=== PATIENT | male | born 1940 | race Caucasian/White ===

== ENCOUNTER 2020-01-01 07:21 | Day surgery (SDC) | payer MEDICARE ==
[2019-12-30 16:05] VITALS: BP 140/69
[2019-12-30 16:06] LABS: BASOPHILS % (AUTO) 0.7 % (0.0-5.0); EOSINOPHILS % (AUTO) 8.6 % (0.0-8.0); LYMPHOCYTES % (AUTO) 22.5 % (21.0-51.0); MEAN CORPUSCULAR HEMOGLOBIN 33.7 pg (27.0-33.0); MEAN CORPUSCULAR HGB CONC 34.1 g/dL (32.0-36.0); MEAN CORPUSCULAR VOLUME 98.9 fL (79-99); MONOCYTES % (AUTO) 8.9 % (3.0-13.0); NEUTROPHILS % (AUTO) 59.2 % (40.0-77.0); PLATELET COUNT (AUTO) 204 K/uL (130-400); RED BLOOD CELL COUNT(AUTO) 3.74 MIL/uL (4.50-6.20); RED CELL DISTRIBUTION WIDTH 13.5 % (11.0-15.5); WHITE BLOOD COUNT (AUTO) 7.1 K/uL (4.8-10.8)
[2019-12-30 16:21] LABS: INR 0.98 (0.85-1.15); PROTHROMBIN TIME 10.3 SEC (9.6-11.6)
--- NOTE | 2019-12-30 16:43 | NUR ---
ABNORMAL EKG REPORTED TO DR. NUÑEZ NO NEW ORDERS AT THIS TIME. OK TO PROCEED WITH PROCEDURE.
[2019-12-30 16:56] LABS: APPEARANCE,URINE Clear (CLEAR); BILIRUBIN,URINE Negative (NEGATIVE); COLOR,URINE Yellow (YELLOW); GLUCOSE, URINE (UA) Negative (NEGATIVE); KETONES,URINE Negative (NEGATIVE); LEUKOCYTE ESTERASE ,URINE Negative (NEGATIVE); NITRATE,URINE Negative (NEGATIVE); OCCULT BLOOD,URINE Negative (NEGATIVE); PH,URINE 5.5 (5.0-8.0); PROTEIN,URINE Negative (NEGATIVE); UROBILINOGEN,URINE 0.2 mg/dL (0.2-1.0)
[2019-12-30 16:59] LABS: CREATININE 0.8 mg/dL (0.5-1.5); POTASSIUM 4.5 mmol/L (3.5-5.1)
[~2020-01-01] VITALS: Ht 185.4 cm; Wt 91.3 kg
[2020-01-01] VITALS (17 sets, daily range): BP systolic 112–155; BP diastolic 59–75
[2020-01-01] MEDS: CEFTRIAXONE SODIUM 1 GM IVP SCH ×2 (06:00→08:50)
[~2020-01-01 07:21] MED LIST: ASPI-555 PO; CETI10TA57 PO; FINA5TAB41 PO; GENTAMICIN 80 MG/NS 100 ML PB 100 ML IV SCH; GLUC100019 PO; IBUP-2077 PO; IBUP-2784 PO; KRIL500C PO; TAMS-1 PO; TURM500C9 PO
[2020-01-01] MEDS ORDERED: PROPOFOL 10 MG/ML 20ML VIAL IV ONE (07:50)
[2020-01-01] MEDS ORDERED: LIDOCAINE PF 2% 5ML ABBOJECT ONE (07:50)
[2020-01-01] MEDS ORDERED: FENTANYL CITRATE PF 50 MCG/1 ML 2ML VIAL ONE (07:51)
[2020-01-01] MEDS ORDERED: LACTATED RINGERS 1000ML 1,000 ML IV ONE (07:59)
[2020-01-01] MEDS ORDERED: GLYCOPYRROLATE 1 MG/5 ML SYRINGE ONE (09:11)
--- NOTE | 2020-01-01 11:33 | NUR ---
ASSESSMENT RECEIVED PT FROM PACU STAFF ALIX DURÁN. PT AAOX3. 22 F HERNÁNDEZ CATH DRAINING TO GRAVITY AT BEDSIDE WITH CLEAR YELLOW URINE. CBI STOPPED. AT BEDSIDE. DENIES ANY PAIN, DISCOMFORT.
--- NOTE | 2020-01-01 12:30 | NUR ---
DISCHARGE ORAL AND WRITTEN DISCHARGE INSTRUCTIONS GIVEN TO ALONG WITH BACITRACIN, PRESCRIPTION. NO QUESTIONS AT THIS TIME. INSTRUCTED ON DRAINING URINE FROM HERNÁNDEZ BAG. VERBALIZED UNDERSTANDING
== END 2020-01-01 12:40 | disposition home or self-care (01) ==
LOC: DAH 07:21
PROVIDERS: ATTEND Urology
DX: N40.0 Benign prostatic hyperplasia without lower urinary tract symptoms (principal); M19.90 Unspecified osteoarthritis, unspecified site; E78.5 Hyperlipidemia, unspecified; Z96.641 Presence of right artificial hip joint; Z72.89 Other problems related to lifestyle; Z98.890 Other specified postprocedural states; Z79.82 Long term (current) use of aspirin; Z79.899 Other long term (current) drug therapy; Z87.891 Personal history of nicotine dependence; Z83.3 Family history of diabetes mellitus; Z82.49 Family history of ischemic heart disease and other diseases of the circulatory system
CPT/HCPCS: 36415; 52648; 71045; 80048; 81003; 85025; 85610; 87088; 93005; A4215; A4221; A4222; A4223; A4354; A4600; A4663; A6260; J0696; J1580; J2001; J2704; J3010; J3490; J7120 ×2

== ENCOUNTER → 2020-12-23 | Outpatient (CLI) | payer OTHER ==
[~2020-12-23] MED LIST changes: -ASPI-555 PO; +ASPI-556 PO; -GENTAMICIN 80 MG/NS 100 ML PB 100 ML IV SCH
== END | disposition home or self-care (01) ==
LOC: OIH 16:23
PROVIDERS: ATTEND Family Medicine
DX: Z13.6 Encounter for screening for cardiovascular disorders (principal)
CPT/HCPCS: 75571

== ENCOUNTER → 2021-10-31 | Outpatient (CLI) | payer MEDICARE ==
[2021-10-31 11:46] LABS: CREATININE 0.9 mg/dL (0.5-1.5)
== END | disposition home or self-care (01) ==
LOC: LAB 10:04
PROVIDERS: ATTEND Thoracic Surgery (Cardiothoracic Vascular Surgery)
DX: I71.4 Abdominal aortic aneurysm, without rupture (principal)
CPT/HCPCS: 36415; 82565; 84520

== ENCOUNTER → 2022-02-13 | Outpatient (CLI) | payer OTHER ==
[~2022-02-13] VITALS: Ht 185.4 cm; Wt 89.8 kg
[~2022-02-13] MED LIST changes: +AEC81 PO; +ASCO500C18 PO; -ASPI-556 PO; +ATOR20TA65 PO; +CHOL500045 PO; -FINA5TAB41 PO; +GLUC-268 PO; -GLUC100019 PO; +HYDR200T4 PO; -IBUP-2077 PO; -IBUP-2784 PO; +KRIL1CAP29 PO; -KRIL500C PO; +REGADENOSON 0.4 MG/5 ML PF SYG IVP SCH; -TAMS-1 PO; +ZINC220T4 PO
== END | disposition home or self-care (01) ==
LOC: SHCH 08:04
PROVIDERS: ATTEND Internal Medicine Cardiovascular Disease
DX: R93.1 Abnormal findings on diagnostic imaging of heart and coronary circulation (principal); I51.7 Cardiomegaly; E83.89 Other disorders of mineral metabolism
CPT/HCPCS: 78452; 93017; 96374; A9500 ×2; J2785

== ENCOUNTER 2022-02-27 13:43 | Emergency (ER) | payer OTHER ==
[~2022-02-27] VITALS: Ht 185.4 cm; Wt 88.5 kg
[~2022-02-27 13:43] MED LIST changes: -REGADENOSON 0.4 MG/5 ML PF SYG IVP SCH
[2022-02-27 13:49] VITALS: BP 136/45
[2022-02-27] MEDS ORDERED: HYDROCODONE/ACETAMINOPHEN 5/325 MG TAB PO ONE (14:00)
[2022-02-27] MEDS ORDERED: ACET-2247 PO (14:25)
[2022-02-27] MEDS ORDERED: MELO7.5T12 PO (14:25)
== END 2022-02-27 14:36 | disposition home or self-care (01) ==
LOC: EDH 13:43
DX: S76.011A Strain of muscle, fascia and tendon of right hip, initial encounter (principal); S80.01XA Contusion of right knee, initial encounter; E78.00 Pure hypercholesterolemia, unspecified; Z79.1 Long term (current) use of non-steroidal anti-inflammatories (NSAID); Z79.82 Long term (current) use of aspirin; Z79.899 Other long term (current) drug therapy; W18.11XA Fall from or off toilet without subsequent striking against object, initial encounter; Y93.89 Activity, other specified; Y92.89 Other specified places as the place of occurrence of the external cause; Y99.8 Other external cause status
CPT/HCPCS: 73502; 73562; 73590